=== PATIENT | female | born 1970 | race Hispanic/Latino ===

== ENCOUNTER 2023-02-14 13:16 | Emergency (ER) | payer MEDICAID, OTHER ==
[~2023-02-14] VITALS: Ht 152.4 cm; Wt 61.2 kg
[2023-02-14] MEDS ORDERED: CEFAZOLIN SODIUM 1 GM VIAL IM SCH (14:30)
[2023-02-14] MEDS ORDERED: TETANUS/DIPHTHERIA TOXOID [ADULT] 0.5 ML VIAL IM ONE (14:30)
[2023-02-14 17:23] VITALS: BP 166/82
== END 2023-02-14 17:33 | disposition home or self-care (01) ==
LOC: EDH 13:16
DX: S91.331A Puncture wound without foreign body, right foot, initial encounter (principal); I10 Essential (primary) hypertension; Z98.890 Other specified postprocedural states; W22.8XXA Striking against or struck by other objects, initial encounter; Y93.89 Activity, other specified; Y92.89 Other specified places as the place of occurrence of the external cause; Y99.8 Other external cause status
CPT/HCPCS: 99284; 90714; 73630; 96372; 90471; J0690